=== PATIENT | male | born 1985 | race African-American/Black ===

== ENCOUNTER 2020-05-01 09:17 | Emergency (ER) | payer BC, OTHER ==
--- NOTE | 2020-05-01 11:58 | CT ---
CT BRAIN WITHOUT CONTRAST: HISTORY: Headache, numbness in lips. Weakness FINDINGS: No evidence of acute infarct, hemorrhage, midline shift or abnormal extra-axial fluid collections is seen. The ventricular size is appropriate and the basilar cisterns are patent. The bony calvarium is intact. The visualized paranasal sinuses and mastoid air cells are well aerated. IMPRESSION: No CT evidence of acute intracranial process.
== END 2020-05-01 12:14 | disposition home or self-care (01) ==
LOC: ERS 09:17
DX: R51.9 Headache, unspecified (principal); I10 Essential (primary) hypertension; E11.9 Type 2 diabetes mellitus without complications; Z79.84 Long term (current) use of oral hypoglycemic drugs; Z79.899 Other long term (current) drug therapy
CPT/HCPCS: 70450; 93005